=== PATIENT | male | born 1950 | race Caucasian/White ===

== ENCOUNTER → 2019-02-13 | Day surgery (SDC) | payer MEDICARE ==
[~2019-02-13] MED LIST: Diazepam TAB(*) 5 MG ONE; Heparin 2 UNITS/ML IVPREMIX* 2,000 ML IV ONE; Heparin(*) 1000 UNIT/ML 10 ML VIAL CATH LAB IV ONE; Iohexol 350 (CONTRAST) 200 ML MDV IV ONE; Lidocaine 1% INJ* 10 MG/ML 30 ML SDV ONE; Midazolam* 1 MG/ML 5 ML VIAL (5 MG) ONE; VERAPAMIL 2.5 MG/ML 2 ML VIAL ** 5 mg/2 ml ONE; diPHENhydraMINE PO* 25 MG ONE; fentaNYL* 50 MCG/ML 2 ML VIAL (100 MCG VIAL) ONE; nitroGLYCERIN DRIP* 25,000 MCG/250 ML BTL ONE
[2019-02-13 11:55] VITALS: BP 141/83
--- NOTE | 2019-02-13 16:47 | CATH ---
"*[facility]* [address] [address] Main: [phone] [email or web address] Cardiac Catheterization Patient: Mau Zimmerman : 1950 Study Date: 02/13/2019 Age: 68 Gender: M HR: Height: 66 in /167.6 cm BSA: 1.87 m^2 Weight: 163 lb /74.1 kg BMI: 26.4 kg/m^2 Garment Manufacturer: Vinicio Lara MD Ordering Physician: Vinicio Lara MD Referring Physician: Vinicio Lara MD, Marco Cabral, --- - Left coronary angiography. - Right coronary angiography. - Left heart catheterization with angiography. Summary: 1. Mitral valve: There is 3-4+ regurgitation. 2. Left ventricle: Systolic function is normal. The estimated ejection fraction is 60-65%. 3. Normal coronary arteries. Recommendations: Evaluation for mitral valve repair. History: Risk factors: Hypertension. Family history is significant for coronary artery disease. Medications: The patient received no antianginal therapy in the last two weeks. Labs, prior tests, procedures, and surgery: Blood tests: International normalized ratio (INR) of 1.03. Partial thromboplastin time (PTT) of 41.4 sec. Serum potassium (K) of 4.1 mEq/l. Serum sodium (Na) of 138 mEq/l. Serum creatinine (current admission) of 0.87 mg/dl. Blood urea nitrogen of 13 mg/dl. Glucose of 102 mg/dl. Platelet count of 196 th/ul. White blood cell count (WBC) of 0.01 th/ul. Red blood cell count (RBC) of 4820 th/ul. Hematocrit of 41 %. Hemoglobin (pre-procedure) of 14.2 g/dl. Study data: Study status: Cardiac cath: elective. Location: Catheterization laboratory. Consent: The risks, benefits, and alternatives to the procedure were explained to the patient and/or their healthcare underwriting account representative and written informed consent was obtained. All available pre-procedure labs were reviewed. Height: 167.6 cm. 66 in. Weight: 74.1 kg. 163 lb. Body surface area: 1.87 m^2. Body mass index: 26.4 kg/m^2. Procedure: 1. Initial setup. The patient was brought to the laboratory. Surface ECG leads, blood pressure measurements, and pulse oximetric signals were monitored. A baseline seven lead ECG was recorded. A time out was observed per protocol. 2. Skin preparation. The planned puncture sites were prepped and draped in the usual sterile manner. 3. Local anesthesia. 1% lidocaine was administered. 4. Sedation. was administered. 5. Local anesthesia. 1% lidocaine (1 ml) was administered. 6. Right radial artery access. A 6F [place] Slender sheath was advanced into the vessel. 7. Supplemental oxygen. Oxygen, 2 L/min was administered throughout the procedure. 8. Selective left coronary angiography. A 5F TIG 4.0 catheter was advanced into the left coronary vessel ostium under fluoroscopic guidance. Contrast was injected. Images were obtained in multiple projections. 9. Selective right coronary angiography. A 5F TIG 4.0 catheter was advanced into the right coronary vessel ostium under fluoroscopic guidance. Contrast was injected. Images were obtained in multiple projections. 10. Left heart catheterization with angiography. A 5F TIG 4.0 catheter was advanced across the aortic valve to the left ventricle under fluoroscopic guidance. 35 ml of contrast was injected at 10 ml/s. 11. Right radial artery hemostasis. Vessel closure was achieved with a Regular Vasc Band device. Study completion: Minimal estimated blood loss. All catheters inserted during the procedure were removed. There were no apparent complications. Administered medications: BENADRYL (Diphenhydramine), 25mg, PO. VALIUM (Diazepam), 5mg, PO. VERSED (Midazolam), 1mg, IV. Fentanyl, 25mcg, IV. (Radial) Nitroglycerin, 300mcg, intra-arterially. (Radial) Verapamil, 3mg, intra-arterially. (Radial) Heparin, 3,000units, intra-arterially. NaCl 0.9% , infusion , at a rate of 100 ml/hr. Contrast: Omnipaque 350 60 ml (total dose). Omnipaque 350 340 ml (wasted). Radiation: Fluoroscopy dose: 54.7 cGy. Discharge: The patient tolerated the procedure well and was discharged from the lab in stable condition. Findings Coronary arteries: The coronary circulation is right dominant. Left main: Normal, 0% stenosis. LAD: Normal, 0% stenosis. Left circumflex: Normal, 0% stenosis. Right coronary: Normal, 0% stenosis. Mitral valve: The valve was evaluated by left ventriculography. There is 3-4+ regurgitation. Left ventricle: Systolic function is normal. The estimated ejection fraction is 60-65%. Hemodynamics: + + + |Stage description |Condition 1 - | + + + |LV pressure s/d, ed |134/4, 14, dP/qu=7671 mm Hg/s| + + + |Arterial pressure s/d (m)|135/66 (91) | + + + Prepared and electronically signed by Vinicio Lara MD 02/13/2019 16:46"
== END | disposition home or self-care (01) ==
LOC: CHICATH 08:17
PROVIDERS: ATTEND Specialist
DX: I08.3 Combined rheumatic disorders of mitral, aortic and tricuspid valves (principal); R07.89 Other chest pain; F17.210 Nicotine dependence, cigarettes, uncomplicated; N40.1 Benign prostatic hyperplasia with lower urinary tract symptoms
CPT/HCPCS: 93458; 99156; 99157; A9270-GY; J1644; J2250; J3010

== ENCOUNTER 2019-08-04 15:07 | Inpatient (IN) | payer MEDICARE ==
--- NOTE | 2019-08-04 17:42 | ED ---
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 The patient rates the pain 0/10 in severity. Symptoms aggravated by nothing. Symptoms alleviated by nothing. The patient had a chest x-ray this morning and was advised to come to the emergency department for further evaluation. Medication list reviewed. Allergy list reviewed. Home Medications Medication Instructions Recorded Confirmed Type oxyCODONE/Acetamin 5/325 MG* 1 tab PO Q4H PRN 09/06/15 02/13/19 History [Percocet 5/325 TAB*] Diclofenac Sodium 3% 1 applic TOPICAL QID PRN 02/03/19 02/13/19 History Doxycycline Monohydrate 200 mg PO ONCE PRN 02/03/19 02/13/19 History Ibuprofen TAB* [Advil TAB*] 200 mg PO DAILY 02/03/19 02/13/19 History Lisinopril TAB* [Prinivil TAB 5 5 mg PO DAILY 02/03/19 02/13/19 History MG*] Multivitamin [Multiple Vitamins] 1 tab PO DAILY 02/03/19 02/13/19 History Vitamin E Mixed [Vitamin E] 400 unit PO DAILY 02/03/19 02/13/19 History - History of Current Complaint Chief Complaint: EDUpperRespComplaint Stated Complaint: SENT BY PER PT Time Seen by Provider: 08/04/19 17:33 Hx Obtained From: Patient Onset/Duration: Lasting Days Current Severity: None Pain Intensity: 0 - Allergy/Home Medications Allergies/Adverse Reactions: Allergies Allergy/AdvReac Type Severity Reaction Status Date / Time No Known Allergies Allergy Verified 08/04/19 15:14 Home Medications: Home Medications oxyCODONE/Acetamin 5/325 MG* [Percocet 5/325 TAB*] 1 tab PO Q4H PRN 09/06/15 [ History Confirmed 02/13/19] Diclofenac Sodium 3% 1 applic TOPICAL QID PRN 02/03/19 [History Confirmed ] Doxycycline Monohydrate 200 mg PO ONCE PRN 02/03/19 [History Confirmed 02/13/19] Ibuprofen TAB* [Advil TAB*] 200 mg PO DAILY 02/03/19 [History Confirmed 02/13/19 ] Lisinopril TAB* [Prinivil TAB 5 MG*] 5 mg PO DAILY 02/03/19 [History Confirmed 02/13/19] Multivitamin [Multiple Vitamins] 1 tab PO DAILY 02/03/19 [History Confirmed ] Vitamin E Mixed [Vitamin E] 400 unit PO DAILY 02/03/19 [History Confirmed ] PMH/Surg Hx/FS Hx/Imm Hx Endocrine/Hematology History: Denies: Hx Diabetes Cardiovascular History: Reports: Hx Hypertension, Other Cardiovascular Problems/ Disorders - MITRAL VALVE REPAIRE Denies: Hx Angina, Hx Hypercholesterolemia, Hx Myocardial Infarction Respiratory History: Denies: Hx Asthma, Hx Chronic Obstructive Pulmonary Disease (COPD) History: Denies: Hx Chronic Renal Failure Sensory History: Denies: Hx Contacts or Glasses, Hx Hearing Aid Opthamlomology History: Denies: Hx Contacts or Glasses - Immunization History Date of Influenza Vaccine: 02/2019 Infectious Disease History: No Infectious Disease History: Denies: Traveled Outside the [place] in Last 30 Days - Social History Alcohol Use: None Substance Use Type: Reports: None Smoking Status (MU): Former Smoker Type: Cigarettes Physical Exam Vital Signs On Initial Exam: Initial Vitals Temp Pulse Resp BP Pulse Ox 97.5 F 96 16 106/78 97 08/04/19 15:09 08/04/19 15:09 08/04/19 15:09 08/04/19 15:09 08/04/19 15:09 Diagnostics - Vital Signs Vital Signs Temp Pulse Resp BP Pulse Ox 08/04/19 15:09 97.5 F 96 16 106/78 97 - Laboratory Lab Statement: Any lab studies that have been ordered have been reviewed, and results considered in the medical decision making process. Discharge ED - Discharge Plan Referrals: Teodora Abernathy MD [Primary Care Provider] - - Attestation Statements Document Initiated by Scribe: Yes
--- NOTE | 2019-08-04 17:42 | ED ---
Respiratory - HPI Summary HPI Summary: 69-year-old male with a significant past medical history mitral valve repair, hypertension presents to the emergency department today complaining of flulike symptoms for the last 5 days. Patient states he has had fatigue, fever for 2 weeks. Patient recently finished antibiotics given to him by his primary care provider for likely pneumonia. Patient also endorses occasional night sweats and 20 pound weight loss in the last month. Patient states he has decreased appetite. At this time patient denies chest pain however he does have intermittent shortness of breath. Patient was seen by his primary care provider today where chest x-ray was done which showed evidence of right middle lobe atelectasis and suggested further imaging with contrast enhanced CT. At this time patient is resting comfortably and is in no acute distress and denies fevers, chest pain, abdominal pain, pain with urination, rash, nausea, vomiting and diarrhea. - History of Current Complaint Chief Complaint: EDUpperRespComplaint Stated Complaint: SENT BY PER PT Time Seen by Provider: 08/04/19 17:33 Hx Obtained From: Patient Onset/Duration: Gradual Onset Timing: Constant Current Severity: None Pain Intensity: 0 Associated Signs and Symptoms: Fever, SOB, URI - Allergy/Home Medications Allergies/Adverse Reactions: Allergies Allergy/AdvReac Type Severity Reaction Status Date / Time No Known Allergies Allergy Verified 08/04/19 15:14 Home Medications: Home Medications oxyCODONE/Acetamin 5/325 MG* [Percocet 5/325 TAB*] 1 tab PO Q6HR PRN 09/06/15 [ History Confirmed 08/04/19] Ibuprofen TAB* [Advil TAB*] 200 mg PO Q6HR PRN 02/03/19 [History Confirmed 08/03] Lisinopril TAB* [Prinivil TAB 5 MG*] 5 mg PO DAILY 02/03/19 [History Confirmed 08/04/19] Vitamin E Mixed [Vitamin E] 400 unit PO DAILY 02/03/19 [History Confirmed ] Aspirin EC TAB* [Ecotrin EC Low Dose 81 MG*] 81 mg PO DAILY 08/04/19 [History Confirmed 08/04/19] Docusate CAP* [Colace Cap*] 100 mg PO BID 08/04/19 [History Confirmed 08/04/19] Metoprolol Tartrate TAB* [Lopressor TAB*] 12.5 mg PO BID 08/04/19 [History Confirmed 08/04/19] Multivitamins/Minerals TAB* [Theragran/minerals TAB*] 1 tab PO DAILY 08/04/19 [ History Confirmed 08/04/19] PMH/Surg Hx/FS Hx/Imm Hx Endocrine/Hematology History: Denies: Hx Diabetes Cardiovascular History: Reports: Hx Hypertension, Other Cardiovascular Problems/ Disorders - MITRAL VALVE REPAIRE Denies: Hx Angina, Hx Hypercholesterolemia, Hx Myocardial Infarction Respiratory History: Denies: Hx Asthma, Hx Chronic Obstructive Pulmonary Disease (COPD) History: Denies: Hx Chronic Renal Failure Sensory History: Denies: Hx Contacts or Glasses, Hx Hearing Aid Opthamlomology History: Denies: Hx Contacts or Glasses - Immunization History Date of Influenza Vaccine: 02/2019 Infectious Disease History: No Infectious Disease History: Denies: Traveled Outside the [place] in Last 30 Days - Social History Alcohol Use: None Substance Use Type: Reports: None Smoking Status (MU): Former Smoker Type: Cigarettes Review of Systems Positive: Fever, Fatigue Eyes: Negative ENT: Negative Cardiovascular: Negative Positive: Shortness Of Breath Gastrointestinal: Negative Genitourinary: Negative Musculoskeletal: Negative Skin: Negative Neurological/Mental Status: Negative Psychological: Normal All Other Systems Reviewed And Are Negative: Yes Physical Exam Triage Information Reviewed: Yes Vital Signs On Initial Exam: Initial Vitals Temp Pulse Resp BP Pulse Ox 97.5 F 96 16 106/78 97 08/04/19 15:09 08/04/19 15:09 08/04/19 15:09 08/04/19 15:09 08/04/19 15:09 Vital Signs Reviewed: Yes Appearance: Positive: Well-Appearing, No Pain Distress, Well-Nourished Skin: Positive: Warm, Skin Color Reflects Adequate Perfusion Eyes: Positive: EOMI, PRABHU ENT: Positive: Hearing grossly normal Respiratory/Lung Sounds: Positive: Clear to Auscultation, Breath Sounds Present Cardiovascular: Positive: RRR, S1, S2 Abdomen Description: Positive: Nontender, Soft Bowel Sounds: Positive: Present Musculoskeletal: Positive: Strength/ROM Intact Neurological: Positive: Sensory/Motor Intact, Alert, Oriented to Person Place, Time, Normal Gait, Facial Symmetry, Speech Normal Psychiatric: Positive: Normal, Affect/Mood Appropriate AVPU Assessment: Alert Procedures - Sedation Patient Received Moderate/Deep Sedation with Procedure: No Diagnostics - Vital Signs Vital Signs Temp Pulse Resp BP Pulse Ox 08/04/19 15:09 97.5 F 96 16 106/78 97 - Laboratory Lab Statement: Any lab studies that have been ordered have been reviewed, and results considered in the medical decision making process. Disposition - Course Course Of Treatment: Patient was evaluated in the emergency department today for shortness of breath. Patient was recently seen by his primary care provider this morning where he had lab work done which returned showing leukocytosis of 17.1 with an ANC of 13.9. CRP was elevated at 300. Lactic acid returned at 1.4. No evidence of sepsis. Laboratory studies are suggestive of possible infectious pathology. There were no significant electrolyte abnormalities. Chest x-ray was done which showed right middle lobe atelectasis and suggested further evaluation with contrast-enhanced CT of the chest to rule out possible lesion. Upon arrival in the emergency department patient is nontoxic and his vitals are stable. CT of the chest with IV contrast shows evidence of pneumonia. Patient was given 2 L of normal saline in the emergency department as well as IV Zosyn. Hospitalist, Dr. Vann was consulted for admission of the patient with a diagnosis of pneumonia with failure of outpatient therapy. - Differential Dx - Cardiopulmonary Differential Diagnoses - Cardiopulmonary: Airway Obstruction, Asthma, Influenza , Pericarditis, Pleurisy, Other - Atelectasis, pneumonia - Diagnoses Provider Diagnoses: Atelectasis, Pneumonia, Leukocytosis - Physician Notifications Discussed Care Of Patient With: Margarito Vann - to admit the patient with diagnosis of pneumonia and failure of outpatient therapy. Instructed by Provider To: Admit As Inpatient Discharge ED - Sign-Out/Discharge Documenting (check all that apply): Patient Departure - Discharge Plan Condition: Stable Disposition: ADMITTED TO [facility] Referrals: Teodora Abernathy MD [Primary Care Provider] - - Billing Disposition and Condition Condition: STABLE Disposition: Admitted to [facility]
[2019-08-04] MEDS ORDERED: NS 0.9% 1000 ML** 1,000 ML IV ONE ×2 (18:21→19:00)
[2019-08-04] MEDS ORDERED: Iohexol 300* (CONTRAST) 10 ML SDV IV ONE (18:22)
[2019-08-04] MEDS ORDERED: Piperacillin/Tazobac ADVAN(*) 3.375 GM in NS 0.9% 100 ML* 100 ML IVPB ONE (19:00)
[2019-08-04 19:54] LABS: Urine Appearance Clear; Urine Bilirubin Negative (Negative); Urine Blood 1+ (Negative); Urine Color Straw; Urine Glucose Negative (Negative); Urine Ketones Trace (Negative); Urine Nitrite Negative (Negative); Urine Protein Negative (Negative); Urine Specific Gravity 1.019 (1.010-1.030); Urine Urobilinogen Negative (Negative)
[2019-08-04 19:56] LABS: Urine Bacteria Absent (Absent); Urine Red Blood Cell Trace(0-2/hpf) (Absent); Urine White Blood Cell Trace(0-5/hpf) (Absent)
[2019-08-04] MEDS ORDERED: Ondansetron INJ* 2 MG/ML VIAL IV PRN (22:44)
[2019-08-04] MEDS ORDERED: Magnesium Hydroxide LIQ* 30 ML UDC PO PRN (22:44)
--- NOTE | 2019-08-04 23:31 | HP ---
History of Present Illness - History of Present Illness Reason for Visit: Fever, fatigue, Flu like symptoms History of Present Illness: 69yo male with PMHx significant for HTN and Mitral valve repair presented to the ED with CC Flu like symptoms, fever and general malaise for the 5 days. Patient stated this has been ongoing for awhile but got worse 5 days ago. Patient reported problem started on bobby's day while away in [place]. he was diagnosed with Pneumonia by his PCP and given some antibiotics which he complete. he endorses night sweats, fever, chills and rigors. There is associated loss of appetite. Most recently he noticed he has been loosing weight due to poor PO intake. Few days back he had SOB which is worsening and reported mild pain with deep breathing. He went back to his PCP today and CXR showed RML atelectasis with further studies requested. CT here showed RLL Pneumonia. He denied chest pain, abdominal pain, nausea, vomiting and diarrhea. Reported pain with deep breathing, mild fever and SOB. - Past Medical History Cardiac: HTN - Past Surgical History Past Surgical History: Other - Mitral valve repair - Past Family History Family History: CAD, Hyperlipidemia, Hypertension, Other - DM, Mom had Alzheimer and was an alcoholic, Brother and Sister had HTN - Past Social History Smoke: Quit - 40 years ago. 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 Alcohol: Occasional - But quit heavy drinking 30 years ago Drugs: Marijuana - ocassional but also quit Lives: With Family Domestic Violence: Negative Review of Systems - Measurements Intake and Output: Intake and Output Last 24 Hours 08/02/19 08/03/19 08/04/19 08/05/19 06:59 06:59 06:59 06:59 Intake Total 100 Balance 100 Weight 67.132 kg Intake: IV Fluids 100 - Review of Systems Constitutional Symptoms: Positive: Weight Loss, Weakness, Fatigue, Fever, Night Sweats Dermatology: Positive: Normal Negative: Rash, Skin Lesions HEENT: Positive: Normal Negative: Vertigo, Sinus Problem Eyes: Negative: Change in Vision, Double Vision, Eye Pain Thyroid: Negative: Cold Intolerance, Heat Intolerance, Sweatiness, Tremor Pulmonary: Positive: Cough, Shortness of Breath Negative: Exercise Intolerance, Home Oxygen Cardiology: Positive: Normal Gastroenterology: Positive: Anorexia Negative: Nausea, Vomiting, Indigestion, Heartburn, Constipation, Diarrhea Genital - Urinary: Negative: Hematuria, Polyuria Musculoskeletal: Negative: Joint Stiffness, Arthritis Endocrinology: Positive: Normal Hematologic/Lymphatic: Negative: Easy Bruising, Hx Leukemia Neurology: Positive: Normal Psychiatry: Positive: Normal Allergic/Immunologic: Negative: Hx Anaphylaxis, Hx Angioedema Objective Active Medications: Acetaminophen (Tylenol Tab*) 650 mg PO Q4H PRN PRN Reason: MILD PAIN or TEMP > 100.4 Aspirin (Aspirin Ec Tab*) 81 mg PO DAILY [facility] Docusate Sodium (Colace Cap*) 100 mg PO BID [facility] Heparin Sodium (Porcine) (Heparin Vial(*)) 5,000 units SUBCUT Q12HR [facility] Piperacillin Sod/Tazobactam (Sod 3.375 gm/ Sodium Chloride) 100 mls @ 25 mls/ hr IVPB Q8H [facility] Lisinopril (Prinivil Tab*) 5 mg PO DAILY [facility] Magnesium Hydroxide (Milk Of Magnesia Liq*) 30 ml PO Q4H PRN PRN Reason: CONSTIPATION Metoprolol Tartrate (Lopressor Tab*) 12.5 mg PO BID [facility] Multivitamins/Minerals (Theragran/Minerals Tab*) 1 tab PO DAILY [facility] Non-Formulary Medication (Vitamin E Mixed [Vitamin E]) 400 unit PO DAILY [facility] Ondansetron HCl (Zofran Inj*) 4 mg IV Q4H PRN PRN Reason: NAUSEA/VOMITING Vital Signs - 8 hr 08/04/19 08/04/19 08/04/19 18:30 18:52 19:00 Pulse Rate 89 82 83 Respiratory 14 19 17 Rate Blood Pressure 121/81 (mmHg) O2 Sat by Pulse 96 95 95 Oximetry 08/04/19 08/04/19 08/04/19 19:22 19:52 20:00 Pulse Rate 88 87 84 Respiratory 19 18 18 Rate Blood Pressure 106/66 115/74 (mmHg) O2 Sat by Pulse 94 95 94 Oximetry 08/04/19 08/04/19 08/04/19 20:22 20:52 21:00 Pulse Rate 82 82 81 Respiratory 18 23 18 Rate Blood Pressure 106/70 117/72 (mmHg) O2 Sat by Pulse 95 96 97 Oximetry 08/04/19 08/04/19 08/04/19 22:00 22:05 22:22 Pulse Rate 85 89 89 Respiratory 24 18 Rate Blood Pressure 122/75 120/77 (mmHg) O2 Sat by Pulse 96 95 95 Oximetry 08/04/19 22:52 Pulse Rate 82 Respiratory 26 Rate Blood Pressure 124/73 (mmHg) O2 Sat by Pulse 93 Oximetry Appearance: Awake, alert and no apparent distress. Eyes: No Scleral Icterus, PERRLA Ears/Nose/Mouth/Throat: NL Teeth, Lips, Gums, Clear Oropharnyx, Mucous Membranes Moist Neck: NL Appearance and Movements; NL JVP, Trachea Midline, No Thyroid Enlargement, Masses Respiratory: Symmetrical Chest Expansion and Respiratory Effort, - - Decreased breath sounds. Mild rales RLL, RML. Cardiovascular: NL Sounds; No Murmurs; No JVD, RRR, No Edema Abdominal: NL Sounds; No Tenderness; No Distention, No Hepatosplenomegaly Lymphatic: No Cervical Adenopathy Extremities: No Edema, No Clubbing, Cyanosis Skin: No Rash or Ulcers Neurological: Alert and Oriented x 3, NL Sensation, NL Gait, NL Muscle Strength and Tone Diagnostic Imaging: CT: RLL consolidation suggestive of Pneumonia Assess/Plan/Problems-Billing Assessment: 69 year old Male with PMHx of HTN with failed outpatient Pneumonia treatment and now receiving IV Zosyn. - Patient Problems (1) Pneumonia Current Visit: Yes Status: Acute Code(s): J18.9 - PNEUMONIA, UNSPECIFIED ORGANISM SNOMED Code(s): 669138051 Comment: CT evidence of RLL consolidation. I will continue with IV Zosyn 3.375 g Q8H extended infusion. Tylenol for fever/pain FU AM labs (2) HTN (hypertension), benign Current Visit: Yes Status: Acute Code(s): I10 - ESSENTIAL (PRIMARY) HYPERTENSION SNOMED Code(s): 38012570 Comment: c/w home Lisinopril with holding parameters. (3) Full code status Current Visit: Yes Status: Acute Code(s): Z78.9 - OTHER SPECIFIED HEALTH STATUS SNOMED Code(s): 132014645 (4) DVT prophylaxis Current Visit: Yes Status: Acute Code(s): Z29.9 - ENCOUNTER FOR PROPHYLACTIC MEASURES, UNSPECIFIED SNOMED Code(s): 692467505 Comment: Lovenox Status and Disposition: Admit to medical floor for treatment of Pneumonia.
[2019-08-04] MEDS: Acetaminophen TAB* 325 MG PO PRN (23:48)
[2019-08-05] MEDS: Heparin VIAL(*) 5000 UNITS/ML VIAL (FIVE THOUSAND) SUBCUT SCH ×3 (01:15→20:14)
[2019-08-05] MEDS ORDERED: guaiFENesin/CODIENE 100mg/10mg 5 ML UDC PO PRN (01:15)
[2019-08-05] MEDS ORDERED: guaiFENesin/CODIENE 100mg/10mg 5 ML UDC ONE (01:25)
[2019-08-05] MEDS: Metoprolol Tartrate TAB* 25 MG PO SCH ×3 (01:27→20:34)
[2019-08-05] MEDS: Piperacillin/Tazobac ADVAN(*) 3.375 GM in NS 0.9% 100 ML* 100 ML IVPB SCH ×2 (01:29→08:14)
[2019-08-05 04:55] LABS: ABS Eosinophils 0.1 10^3/ul (0-0.6); ABS Lymphocytes 1.6 10^3/ul (1.0-4.8); ABS Monocytes 1.1 10^3/ul (0-0.8); Eosinophil % 0.5 %; Hematocrit 33 % (42-52); Hemoglobin 11.2 g/dL (14.0-18.0); Lymphocyte % 12.5 %; Mean Corpuscular HGB Conc 34 g/dL (31-36); Mean Corpuscular Hemoglobin 28 pg (27-31); Mean Corpuscular Volume 83 fL (80-94); Mean Platelet Volume 7.7 fL (7.4-10.4); Platelet Count 379 10^3/uL (150-450); Red Cell Distribution Width 13 % (10-15); White Blood Count 12.8 10^3/uL (3.5-10.8)
[2019-08-05 05:11] LABS: BUN/Creatinine Ratio 13.2 (8-20); Calcium 8.5 mg/dL (8.6-10.3); EGFR Non-African American 101.7 (>60); Potassium 4.2 mmol/L (3.5-5.0)
[2019-08-05] MEDS: Aspirin EC TAB* 81 MG TAB.EC PO SCH (08:15)
[2019-08-05] MEDS: Multivitamins/Minerals TAB PO SCH (08:15)
[2019-08-05] MEDS: Vitamin E CAP* 400 UNIT PO SCH (08:16)
[2019-08-05] MEDS: Docusate CAP* 100 MG PO SCH ×2 (08:17→20:15)
--- NOTE | 2019-08-05 08:43 | PN ---
Subjective Date of Service: 08/05/19 Interval History: Patient is feeling improved today since admission. He feels his cough is tolerable but it is typically worse at night when supine. He denies symptomatic fever/chills at time of evaluation. Denies SOB, chest pain, abd pain, diarrhea. Objective Active Medications: Acetaminophen (Tylenol Tab*) 650 mg PO Q4H PRN PRN Reason: MILD PAIN or TEMP > 100.4 Last Admin: 08/04/19 23:48 Dose: 650 mg Aspirin (Aspirin Ec Tab*) 81 mg PO DAILY [facility] Last Admin: 08/05/19 08:15 Dose: 81 mg Docusate Sodium (Colace Cap*) 100 mg PO BID [facility] Last Admin: 08/05/19 08:17 Dose: Not Given Guaifenesin/Codeine Phosphate (Robitussin Ac 100mg/10mg In 5 Ml) 5 ml PO ONCE PRN PRN Reason: COUGH Heparin Sodium (Porcine) (Heparin Vial(*)) 5,000 units SUBCUT Q12HR [facility] Last Admin: 08/05/19 08:17 Dose: Not Given Piperacillin Sod/Tazobactam (Sod 3.375 gm/ Sodium Chloride) 100 mls @ 25 mls/ hr IVPB Q8H [facility] Last Admin: 08/05/19 08:14 Dose: 25 mls/hr Lisinopril (Prinivil Tab*) 5 mg PO DAILY [facility] Last Admin: 08/05/19 08:16 Dose: 5 mg Magnesium Hydroxide (Milk Of Magnesia Liq*) 30 ml PO Q4H PRN PRN Reason: CONSTIPATION Metoprolol Tartrate (Lopressor Tab*) 12.5 mg PO BID [facility] Last Admin: 08/05/19 08:16 Dose: 12.5 mg Multivitamins/Minerals (Theragran/Minerals Tab*) 1 tab PO DAILY [facility] Last Admin: 08/05/19 08:15 Dose: 1 tab Ondansetron HCl (Zofran Inj*) 4 mg IV Q4H PRN PRN Reason: NAUSEA/VOMITING Vitamin E (Vitamin E Cap*) 400 unit PO DAILY [facility] Last Admin: 08/05/19 08:16 Dose: 400 unit Vital Signs - 8 hr 08/05/19 08/05/19 08/05/19 02:02 02:05 03:15 Temperature 99.1 F 100.2 F Pulse Rate 98 88 Respiratory 16 16 21 Rate Blood Pressure 123/76 116/63 (mmHg) O2 Sat by Pulse 95 96 Oximetry 08/05/19 07:26 Temperature 100.3 F Pulse Rate 90 Respiratory 16 Rate Blood Pressure 104/65 (mmHg) O2 Sat by Pulse 94 Oximetry Oxygen Devices in Use Now: None Appearance: Thin, elderly white male, sitting on edge of hospital bed, appearing comfortable and in NAD, minimally diaphoretic Eyes: No Scleral Icterus, - - PERRL Ears/Nose/Mouth/Throat: Mucous Membranes Moist Neck: Trachea Midline Respiratory: Symmetrical Chest Expansion and Respiratory Effort, - - some right sided rhonchi which clears with cough, otherwise clear to auscultation Cardiovascular: NL Sounds; No Murmurs; No JVD, RRR Abdominal: - - abd soft/nontender/nondistended Extremities: No Edema, No Clubbing, Cyanosis Skin: No Rash or Ulcers Neurological: Alert and Oriented x 3 Result Diagrams: 08/05/19 04:28 08/05/19 04:28 Diagnostic Imaging: CT: RLL consolidation suggestive of Pneumonia Assess/Plan/Problems-Billing Assessment: 69 year old Male with PMHx of HTN, BPH, mitral valve replacement, who failed outpatient doxycycline therapy for PNA and presents with fever. - Patient Problems (1) Sepsis Current Visit: Yes Status: Acute Comment: -SIRS criteria of tachycardia, fever, and leukocytosis -2/2 pneumonia -received IVF and broad spectrum abx of zosyn, will change to azithromycin and ceftriaxone (2) Pneumonia Current Visit: Yes Status: Acute Code(s): J18.9 - PNEUMONIA, UNSPECIFIED ORGANISM SNOMED Code(s): 561541305 Comment: -CT chest demonstrates RLL consolidation -previously treated with doxycyline outpatient, finished 7d rx 3 days ago -changing abx to ceftriaxone and azithromycin -continue antipyretics -patient was febrile O/N -ordering strep and legionella urine antigens (3) HTN (hypertension), benign Current Visit: Yes Status: Acute Code(s): I10 - ESSENTIAL (PRIMARY) HYPERTENSION SNOMED Code(s): 35247722 Comment: -d/c lisinopril due to minimal hypotension, will give 500 ml NS bolus (4) DVT prophylaxis Current Visit: Yes Status: Acute Code(s): Z29.9 - ENCOUNTER FOR PROPHYLACTIC MEASURES, UNSPECIFIED SNOMED Code(s): 346241504 Comment: -HSQ (5) Full code status Current Visit: Yes Status: Acute Code(s): Z78.9 - OTHER SPECIFIED HEALTH STATUS SNOMED Code(s): 212493607 Status and Disposition: Admit to medical floor for treatment of Pneumonia.
[2019-08-05] MEDS ORDERED: Lisinopril TAB* 5 MG PO SCH (09:00)
[2019-08-05] MEDS: Azithromycin 500 mg/250 ml NS 500 MG/250 ML BAG IVPB SCH (10:26)
[2019-08-05] MEDS ORDERED: NS 0.9% 500 ML* 500 ML IV ONE ×2 (12:33→16:29)
[2019-08-05] MEDS: cefTRIAXone(*) 1 GM in NS 0.9% 50 ML* 50 ML IVPB SCH (16:40)
[2019-08-05] MEDS: guaiFENesin/CODIENE 100mg/10mg 5 ML UDC PO PRN (20:20)
[2019-08-06] MEDS: Acetaminophen TAB* 325 MG PO PRN (04:30)
[2019-08-06 06:05] LABS: ABS Eosinophils 0.1 10^3/ul (0-0.6); ABS Lymphocytes 1.7 10^3/ul (1.0-4.8); ABS Monocytes 0.8 10^3/ul (0-0.8); ABS Neutrophils 6.9 10^3/ul (1.5-7.7); Eosinophil % 1.5 %; Hematocrit 31 % (42-52); Hemoglobin 10.6 g/dL (14.0-18.0); Lymphocyte % 18.1 %; Mean Corpuscular HGB Conc 34 g/dL (31-36); Mean Corpuscular Hemoglobin 28 pg (27-31); Mean Corpuscular Volume 83 fL (80-94); Mean Platelet Volume 7.7 fL (7.4-10.4); Platelet Count 358 10^3/uL (150-450); Red Blood Count 3.74 10^6 /uL (4.18-5.48); Red Cell Distribution Width 13 % (10-15); White Blood Count 9.6 10^3/uL (3.5-10.8)
[2019-08-06] MEDS: Docusate CAP* 100 MG PO SCH ×2 (09:34→19:57)
[2019-08-06] MEDS: Heparin VIAL(*) 5000 UNITS/ML VIAL (FIVE THOUSAND) SUBCUT SCH ×2 (09:34→19:57)
[2019-08-06] MEDS: Aspirin EC TAB* 81 MG TAB.EC PO SCH (09:35)
[2019-08-06] MEDS: Metoprolol Tartrate TAB* 25 MG PO SCH ×2 (09:35→19:57)
[2019-08-06] MEDS: Multivitamins/Minerals TAB PO SCH (09:36)
[2019-08-06] MEDS: Vitamin E CAP* 400 UNIT PO SCH (09:36)
[2019-08-06] MEDS: Azithromycin 500 mg/250 ml NS 500 MG/250 ML BAG IVPB SCH (09:39)
[2019-08-06] MEDS ORDERED: NS 0.9% 500 ML* 500 ML IV ONE (15:16)
[2019-08-06] MEDS: cefTRIAXone(*) 1 GM in NS 0.9% 50 ML* 50 ML IVPB SCH (16:21)
--- NOTE | 2019-08-06 16:26 | PN ---
Subjective Date of Service: 08/06/19 Interval History: Patient did start to feel chills last night when fever began, and felt improved with tylenol. Denies SOB, chest pain, abd pain. Cough is tolerable. Objective Active Medications: Acetaminophen (Tylenol Tab*) 650 mg PO Q4H PRN PRN Reason: MILD PAIN or TEMP > 100.4 Last Admin: 08/06/19 04:30 Dose: 650 mg Aspirin (Aspirin Ec Tab*) 81 mg PO DAILY [facility] Last Admin: 08/06/19 09:35 Dose: 81 mg Docusate Sodium (Colace Cap*) 100 mg PO BID [facility] Last Admin: 08/06/19 09:34 Dose: Not Given Guaifenesin/Codeine Phosphate (Robitussin Ac 100mg/10mg In 5 Ml) 5 ml PO ONCE PRN PRN Reason: COUGH Guaifenesin/Codeine Phosphate (Robitussin Ac 100mg/10mg In 5 Ml) 5 ml PO Q6H PRN PRN Reason: COUGH Last Admin: 08/05/19 20:20 Dose: 5 ml Heparin Sodium (Porcine) (Heparin Vial(*)) 5,000 units SUBCUT Q12HR [facility] Last Admin: 08/06/19 09:34 Dose: Not Given Azithromycin (Zithromax 500 Mg/250 Ml) 500 mg in 250 mls @ 250 mls/hr IVPB Q24H [facility] Last Admin: 08/06/19 09:39 Dose: 250 mls/hr Ceftriaxone Sodium 1 gm/ (Sodium Chloride) 50 mls @ 100 mls/hr IVPB Q24H [facility] Last Admin: 08/05/19 16:40 Dose: 100 mls/hr Sodium Chloride (Ns 0.9% 1000 Ml) 1,000 mls @ 75 mls/hr IV PER RATE [facility] Magnesium Hydroxide (Milk Of Magnesia Liq*) 30 ml PO Q4H PRN PRN Reason: CONSTIPATION Metoprolol Tartrate (Lopressor Tab*) 12.5 mg PO BID [facility] Last Admin: 08/06/19 09:35 Dose: 12.5 mg Multivitamins/Minerals (Theragran/Minerals Tab*) 1 tab PO DAILY [facility] Last Admin: 08/06/19 09:36 Dose: 1 tab Ondansetron HCl (Zofran Inj*) 4 mg IV Q4H PRN PRN Reason: NAUSEA/VOMITING Vitamin E (Vitamin E Cap*) 400 unit PO DAILY [facility] Last Admin: 08/06/19 09:36 Dose: 400 unit Vital Signs - 8 hr 08/06/19 08/06/19 11:15 15:00 Temperature 98.4 F 97.4 F Pulse Rate 87 81 Respiratory 20 18 Rate Blood Pressure 106/68 100/68 (mmHg) O2 Sat by Pulse 96 99 Oximetry Oxygen Devices in Use Now: None Appearance: Elderly white male, laying upright in bed, appearing comfortable and in NAD Eyes: No Scleral Icterus, - - PERRL Ears/Nose/Mouth/Throat: Mucous Membranes Moist Neck: Trachea Midline Respiratory: Symmetrical Chest Expansion and Respiratory Effort, Clear to Auscultation Cardiovascular: NL Sounds; No Murmurs; No JVD, RRR Abdominal: - - abd soft, nontender, nondistended Extremities: No Edema, No Clubbing, Cyanosis Skin: No Rash or Ulcers Neurological: Alert and Oriented x 3 Result Diagrams: 08/06/19 05:21 08/05/19 04:28 Microbiology and Other Data: Microbiology 08/04/19 19:46 Urine Culture - Final Urine No Growth (<1,000 CFU/mL) 08/05/19 13:30 Legionella Urinary Antigen - Final Urine Negative Legionella Antigen Streptococcus pneumoniae Ag Screen - Final Negative S. pneumo Antigen Diagnostic Imaging: CT: RLL consolidation suggestive of Pneumonia Assess/Plan/Problems-Billing Assessment: 69 year old Male with PMHx of HTN, BPH, mitral valve replacement, who failed outpatient doxycycline therapy for PNA and presents with fever. - Patient Problems (1) Sepsis Current Visit: Yes Status: Acute Comment: -SIRS criteria of tachycardia, fever, and leukocytosis -2/2 pneumonia -continue azithromycin and ceftriaxone -concerned regarding hypotension again today, giving more IV fluids and monitoring (2) Pneumonia Current Visit: Yes Status: Acute Code(s): J18.9 - PNEUMONIA, UNSPECIFIED ORGANISM SNOMED Code(s): 944628034 Comment: -CT chest demonstrates RLL consolidation -previously treated with doxycyline outpatient, finished 7d rx 3 days ago -continue ceftriaxone and azithromycin -continue antipyretics -patient was febrile O/N again and more hypotension today -negative strep and legionella urine antigens (3) HTN (hypertension), benign Current Visit: Yes Status: Acute Code(s): I10 - ESSENTIAL (PRIMARY) HYPERTENSION SNOMED Code(s): 46818972 Comment: -holding lisinopril due to minimal hypotension, repeating fluids (4) DVT prophylaxis Current Visit: Yes Status: Acute Code(s): Z29.9 - ENCOUNTER FOR PROPHYLACTIC MEASURES, UNSPECIFIED SNOMED Code(s): 192664644 Comment: -HSQ (5) Full code status Current Visit: Yes Status: Acute Code(s): Z78.9 - OTHER SPECIFIED HEALTH STATUS SNOMED Code(s): 054781442 Status and Disposition: continue to monitor due to hypotension in the setting of sepsis
[2019-08-06] MEDS: NS 0.9% 1000 ML** 1,000 ML IV SCH (16:31)
[2019-08-06] MEDS: guaiFENesin/CODIENE 100mg/10mg 5 ML UDC PO PRN (20:03)
[2019-08-07] MEDS: Docusate CAP* 100 MG PO SCH (08:37)
[2019-08-07] MEDS: Heparin VIAL(*) 5000 UNITS/ML VIAL (FIVE THOUSAND) SUBCUT SCH (08:37)
[2019-08-07] MEDS: Aspirin EC TAB* 81 MG TAB.EC PO SCH (08:46)
[2019-08-07] MEDS: Metoprolol Tartrate TAB* 25 MG PO SCH (08:47)
[2019-08-07] MEDS: Vitamin E CAP* 400 UNIT PO SCH (08:52)
[2019-08-07] MEDS: Multivitamins/Minerals TAB PO SCH (08:55)
[2019-08-07] MEDS: Azithromycin 500 mg/250 ml NS 500 MG/250 ML BAG IVPB SCH (09:22)
[2019-08-07] MEDS: NS 0.9% 1000 ML** 1,000 ML IV SCH (09:27)
[2019-08-07 11:08] VITALS: BP 103/63
--- NOTE | 2019-08-07 20:51 | DS ---
CC: Dr. Abernathy * DISCHARGE SUMMARY: DATE OF ADMISSION: 08/04/19 DATE OF DISCHARGE: 08/07/19 PROVIDER: GARY Bernardo ATTENDING PHYSICIAN WHILE IN THE HOSPITAL: Dr. Jessy Ortega * (dictated by GARY Bernardo). PRIMARY CARE PROVIDER: Dr. Abernathy. PRIMARY DIAGNOSIS: Sepsis secondary to pneumonia, systemic inflammatory response syndrome criteria, resolved. SECONDARY DIAGNOSES: 1. Mitral valve replacement. 2. Hypertension. 3. Benign prostatic hypertrophy. PERTINENT STUDIES WHILE IN THE HOSPITAL: CT of the chest from 08/04/19 demonstrates large area of consolidation in the right lower lobe suggestive of pneumonia. PERTINENT LAB DATA: White blood cell count initially 12.8, later 9.6. HISTORY OF PRESENT ILLNESS/HOSPITAL COURSE: Mau Zimmerman is a 69-year-old white male with past medical history significant for mitral valve replacement, hypertension, BPH, who presented to the emergency department on 08/04/19 due to ongoing fever, malaise and cough. He was already treated outpatient with doxycycline for community-acquired pneumonia and evidently he had failed this therapy and was admitted to the hospital with signs of sepsis. His signs of sepsis included fever, tachypnea and leukocytosis over 12,000. During his hospitalization, he did become minimally hypotensive, which is why his hospital stay was lengthened due to fluid resuscitation and monitoring. Ultimately, by day of discharge, the patient was feeling well, he was afebrile for over 24 hours, his blood pressure was normotensive and his lungs were clear to auscultation. He had been treated with ceftriaxone and azithromycin during his hospital stay and did receive a full course of IV azithromycin during this hospitalization. The patient's home lisinopril was held during this hospitalization due to his ongoing hypotension, but due to his fair blood pressures today, I see no problem with restarting at home. PHYSICAL EXAMINATION ON THE DAY OF DISCHARGE: General: Thin, elderly white male, sitting upright in hospital bed, appearing comfortable, in no acute distress and nontoxic. Eyes: PERRLA. Sclerae anicteric. ENT: Mucous membranes moist. Lungs: Clear to auscultation throughout. Cardio: No edema. Heart rate is regular rate and rhythm. Abdomen: Soft. Extremities: No clubbing or cyanosis. Neuro: The patient is alert and oriented x3. DISCHARGE PLAN: DISCHARGE INSTRUCTIONS: The patient is advised to continue the full course of his oral antibiotics prescription. He was previously prescribed guaifenesin with codeine outpatient approximately 2 weeks ago and he has really run out of this prescription and I will re-prescribe this due to cough at night that keeps him awake. The patient is advised to return to emergency department if he experience any shortness of breath, chest pain, fever, chills or other concerning symptoms. He is advised to follow up with his primary care provider within a week to 7 days. The patient was advised to maintain good oral fluid intake and advised to take 2 ounces of water a day, especially during acute illness. DISCHARGE MEDICATIONS: New Medications: 1. Cefdinir 300 mg p.o. b.i.d. x8 days. 2. Guaifenesin plus codeine 100 mg/10 mg 5 mL p.o. q.6 hours p.r.n. cough. Continued Home Medications: 1. Oxycodone/acetaminophen 5/325 mg 1 tab p.o. q.6 hours p.r.n. pain. 2. Docusate 100 mg p.o. b.i.d. 3. Metoprolol tartrate 12.5 mg p.o. b.i.d. 4. Aspirin 81 mg p.o. daily. 5. Lisinopril 5 mg p.o. daily. 6. Multivitamin 1 tab p.o. daily. 7. Vitamin E 400 mg p.o. daily. 8. Ibuprofen 200 mg p.o. q.6 hours p.r.n. pain. DISCHARGE DIET: Regular, unrestricted. DISCHARGE ACTIVITY: The patient may return to normal activities as tolerated. CONDITION ON DISCHARGE: Stable. DISPOSITION: Home. TIME SPENT: Approximately 35 minutes was spent on this discharge, approximately half of that time was spent at bedside evaluating the patient and discussing the plan of care. GARY BERNARDO [id number]/CPS #: [id number] MTDD
== END 2019-08-07 12:30 | disposition home or self-care (01) | DRG 871 ==
LOC: ED 15:07 → MED 22:44
PROVIDERS: ADMIT Family Medicine; ATTEND Internal Medicine
DX: A41.9 Sepsis, unspecified organism (principal); J18.9 Pneumonia, unspecified organism; J98.11 Atelectasis; I10 Essential (primary) hypertension; N40.0 Benign prostatic hyperplasia without lower urinary tract symptoms; I95.9 Hypotension, unspecified; Z95.2 Presence of prosthetic heart valve; Z83.438 Family history of other disorder of lipoprotein metabolism and other lipidemia; Z82.49 Family history of ischemic heart disease and other diseases of the circulatory system; Z83.3 Family history of diabetes mellitus; Z81.1 Family history of alcohol abuse and dependence; Z87.891 Personal history of nicotine dependence
CPT/HCPCS: 36415; 71260; 80048; 81003; 81015; 83605; 85025; 87086; 87899; 96361; 96365; 99284; A9270-GY; J0456; J0696; J1644; J2543; Q9967